=== PATIENT | male | born 1960 | race Caucasian/White ===

== ENCOUNTER 2021-01-20 17:17 | Inpatient (IN) | payer MEDICARE ==
[~2021-01-20] VITALS: Ht 175.3 cm; Wt 107.5 kg
--- NOTE | 2021-01-20 17:59 | PHYS DOC ---
Past Medical History Past Medical History: Arthritis Additional Past Medical Histor: Chronic Testicular pain Past Surgical History: No Surgical History General Adult EDM: Chief Complaint: BACK PAIN - NO INJURY HPI: HPI: Patient is a 60-year-old male that presents today via [facility] with low back pain with radiation to the right leg. Patient states that he went to the this morning which is his normal routine, he then went to [facility] to meet with someone and did some shopping he says while he was shopping he said he noticed a pain in his right side and by the time he got home the pain is worse and he was having shooting pains down his right leg. He states that his had pain in the past related to this he said that his old primary care physician uses give him Gerald and Flexeril for it, he states he has not had a flareup in 3 years he took some medications at home today that were over 2 years old and he said they did nothing for his pain. Patient states he has never had any MRI studies or any kind of radiological studies on his back in the past. Patient denies loss of bowel or bladder control, patient states he has not had the sensation to go to the bathroom or to have a stool today, he says he has had very little to eat and has had a few glasses of water Review of Systems: Review of Systems: Constitutional: Denies fever or chills. [] Eyes: Denies change in visual acuity. [] HENT: Denies nasal congestion or sore throat. [] Respiratory: Denies cough or shortness of breath. [] Cardiovascular: Denies chest pain or edema. [] GI: Denies abdominal pain, nausea, vomiting, bloody stools or diarrhea. [] : Denies dysuria. [] Musculoskeletal: Low back pain with radiation to the right leg Integument: Denies rash. [] Neurologic: Denies headache, focal weakness or sensory changes. [] Endocrine: Denies polyuria or polydipsia. [] Lymphatic: Denies swollen glands. [] Psychiatric: Denies depression or anxiety. [] Heart Score: C/O Chest Pain: N/A Risk Factors: Risk Factors: DM, Current or recent (<one month) smoker, HTN, HLP, family history of CAD, obesity. Risk Scores: Score 0 - 3: 2.5% MACE over next 6 weeks - Discharge Home Score 4 - 6: 20.3% MACE over next 6 weeks - Admit for Clinical Observation Score 7 - 10: 72.7% MACE over next 6 weeks - Early Invasive Strategies Current Medications: Current Medications Medications (Trade) Dose Ordered Sig/Kourntey Start Time Stop Time Status Last Admin Dose Admin Ketorolac Tromethamine (Toradol Im) 60 mg 1X ONCE 01/20/21 18:00 01/20/21 18:01 UNV Orphenadrine Citrate (Norflex) 60 mg 1X ONCE 01/20/21 18:00 01/20/21 18:01 UNV Allergies: Allergies: Allergies Coded Allergies Type Severity Reaction Last Updated Verified Sulfa (Sulfonamide Antibiotics) Allergy Unknown 01/20/21 Yes Physical Exam: PE: Constitutional: Well developed, well nourished, mild distress, non-toxic appearance. [] HENT: Normocephalic, atraumatic, bilateral external ears normal, oropharynx moist, no oral exudates, nose normal. [] Eyes: PERRLA, EOMI, conjunctiva normal, no discharge. [] Neck: Normal range of motion, no tenderness, supple, no stridor. [] Cardiovascular:Heart rate regular rhythm, no murmur [] Lungs & Thorax: Bilateral breath sounds clear to auscultation [] Abdomen: Bowel sounds normal, soft, no tenderness, no masses, no pulsatile masses. [] Skin: Warm, dry, no erythema, no rash. [] Back: Tenderness located in the low back area over L4-5 L5-S1 also had some radiation into the right buttock area [] Extremities: No tenderness, no cyanosis, no clubbing, ROM intact, no edema. [] Neurologic: Alert and oriented X 3, patient states he is unable to use his right leg very well while walking and he had does have some sensory deficits in the right leg Psychologic: Affect normal, judgement normal, mood normal. [] Current Patient Data: Vital Signs: Vital Signs Date Time Temp Pulse Resp B/P (MAP) Pulse Ox O2 Delivery O2 Flow Rate FiO2 01/20/21 17:27 98.6 101 15 138/67 (90) 96 Room Air 98.6 EKG: EKG: [] Radiology/Procedures: Radiology/Procedures: [REASON: low back pain PROCEDURE: LUMBAR SPINE MIN 4V EXAMINATION: XR LUMBAR SPINE 4+V CLINICAL HISTORY: Low back pain TECHNIQUE: XR LUMBAR SPINE 4+V COMPARISON: None FINDINGS/ IMPRESSION: Normal anatomic alignment. No evidence of acute fracture or spondylolisthesis. Disc spaces are relatively well-maintained. Multilevel facet arthropathy. SI joints maintained. Vascular calcifications. Electronically signed by: Orville Bloom DO (01/20/2021 7:14 PM) [facility]] Course & Med Decision Making: Course & Med Decision Making Pertinent Labs and Imaging studies reviewed. (See chart for details) 1909 reassessment of patient done patient states pain is down to a 2 or 3 out of 10, patient ambulated by nursing staff having to use a cane states he is unable to walk very far he walked about 10 feet down the hallway and states that he cannot do anymore. Patient states he lives by himself and has no resources at home. Will talk to [facility] physician and get the patient admitted Herminio Disclaimer: Herminio Disclaimer: This electronic medical record was generated, in whole or in part, using a voice recognition dictation system. Departure Departure Impression: Primary Impression: Intractable back pain Disposition: ADMITTED INPATIENT Admitting Physician: YANET Condition: STABLE LOLIS ARCOS [employer] Jan 20, 2021 17:59
[2021-01-20] MEDS ORDERED: KETOROLAC 60 MG/2 ML VIAL. IM ONE (18:00)
[2021-01-20] MEDS ORDERED: ORPHENADRINE CITRATE 60 MG/2 ML VIAL. IM ONE (18:00)
--- NOTE | 2021-01-20 19:17 | RAD ---
EXAMINATION: XR LUMBAR SPINE 4+V CLINICAL HISTORY: Low back pain TECHNIQUE: XR LUMBAR SPINE 4+V COMPARISON: None FINDINGS/ IMPRESSION: Normal anatomic alignment. No evidence of acute fracture or spondylolisthesis. Disc spaces are relati vely well-maintained. Multilevel facet arthropathy. SI joints maintained. Vascular calcifications. Electronically signed by: Orville Bloom DO (01/20/2021 7:14 PM) MARINA
[2021-01-20] MEDS ORDERED: HYDROcodone/APAP 5/325MG 1 TAB TABLET PO PRN (20:00)
[2021-01-20 21:30] VITALS: BP_SYST 150; BP_SYST 153; BP_DIAS 70; BP_DIAS 83
[2021-01-20] MEDS ORDERED: BUTORPHANOL 2 MG/ML VIAL. IV PRN (21:45)
[2021-01-20] MEDS ORDERED: ALLO300T PO (21:53)
--- NOTE | 2021-01-20 22:09 | HP ---
DATE OF SERVICE: 01/20/2021 ADMIT DATE: 01/20/2021 CHIEF COMPLAINT: Back pain and leg pain. HISTORY OF PRESENT ILLNESS: The patient is a pleasant 60-year-old male who presented from [place] via EMS. He has chronic radicular pain. He states he has had sciatica for 10 years, but it got worse. While in the ER, he was having problems walking. I gave him some IM Norflex and some Toradol that seemed to help a little bit, but he still cannot walk. I discussed the case with ER physician. We are going to admit the patient and consult Dr. Bansal. PAST MEDICAL HISTORY: Possible narcotic dependence? (he states he has some [place] at home), arthritis, chronic back pain, testicular pain, sciatica. ALLERGIES: SULFA. FAMILY HISTORY: Diabetes. SOCIAL HISTORY: Does not drink, smoke or take drugs. He states he is on disability. MEDICATIONS: Reviewed, please refer to the MRAD. REVIEW OF SYSTEMS: GENERAL: No history of weight change, weakness or fevers. SKIN: No bruising, hair changes or rashes. EYES: No blurred, double or loss of vision. NOSE AND THROAT: No history of nosebleeds, hoarseness or sore throat. HEART: No history of palpitations, chest pain or shortness of breath on exertion. LUNGS: Denies cough, hemoptysis, wheezing or shortness of breath. GASTROINTESTINAL: Denies changes in appetite, nausea, vomiting, diarrhea or constipation. GENITOURINARY: No history of frequency, urgency, hesitancy or nocturia. NEUROLOGIC: Denies history of numbness, tingling, tremor or weakness. PSYCHIATRIC: No history of panic, anxiety or depression. ENDOCRINE: No history of heat or cold intolerance, polyuria or polydipsia. EXTREMITIES: He complains of leg pain. PHYSICAL EXAMINATION: VITALS: Within normal limits and are stable. GENERAL: No apparent distress. Alert and oriented. HEENT: Normal cephalic atraumatic, external auditory canals are patent. EYES: Extraocular muscles are intact, pupils are equally round and reactive to light and accommodation. MUSCULOSKELETAL: Well developed, well nourished, good range of motion. ENDOCRINE: No thyromegaly was palpated. LYMPHATICS: No cervical chain or axillary nodes were noted. HEMATOPOIETIC: No bruising. NECK: Supple, no JVD, no thyromegaly was noted. LUNGS: Clear to auscultation in all lung gil without rhonchi or wheezing. HEART: RRR, S1, S2 present. Peripheral pulses intact, no obvious murmurs were noted. ABDOMEN: Soft, nontender. Positive bowel sounds no organomegaly, normal bowel sounds. EXTREMITIES: Without any cyanosis, clubbing, or edema. Pedal pulses intact, Homans sign is negative. NEUROLOGIC: Straight leg raising on the right does produce back pain. PSYCHIATRIC: Normal affect, normal mood. Stable. SKIN: No ulcerations or rashes, good skin turgor, no jaundice. VASCULAR: Good capillary refill, neurovascular bundle appears to be intact. ASSESSMENT AND PLAN: Intractable radicular pain. The patient has been admitted. We will consult Dr. Bansal. P.r.n. pain meds, home meds, DVT prophylaxis. Full code. ERWIN DR: Vero TID: [id number]
[2021-01-20] MEDS: NICOTINE 21MG PATCH. TD SCH (22:56)
[2021-01-20 23:13] VITALS: BP 136/53
[2021-01-20] MEDS ORDERED: traMADol 50 MG TABLET PO PRN (23:45)
[2021-01-21 03:02] VITALS: BP 124/67
[2021-01-21 07:00] VITALS: BP 142/70
[2021-01-21] MEDS: NICOTINE 21MG PATCH. TD SCH (08:57)
--- NOTE | 2021-01-21 10:28 | NUR ---
SW following. Discussed with RN, pt from home, room air, regular diet, ad syed. Dr. Bansal consulted. Pt wanting to go home today. Pt up ambulating in the hallway getting coffee. RN advised no SW needs at this time. SW will continue to follow.
[2021-01-21 11:00] VITALS: BP 144/68
--- NOTE | 2021-01-21 12:46 | PDOC ---
[employer] PROGRESS NOTE Date of Service DOS: DATE: 01/21/21 TIME: 12:46 Chief Complaint Chief Complaint ASSESSMENT AND PLAN: Intractable radicular pain. The patient has been admitted. We will consult Dr. Bansal. Pfidencio. pain meds, home meds, DVT prophylaxis. Full code. History of Present Illness History of Present Illness Mr Quan is a 60-year-old male w/ PMhx osteoarthritis, gout who presented from [place] via EMS. He has chronic radicular pain. He states he has had sciatica for 10 years, but it got worse. While in the ER, he was having problems walking with right leg sciatic pain that came on while in the pool at [facility]. Givensome IM Norflex and some Toradol that seemed to help a little bit, but he still could not walk. Admitted for further care. After hydrocodone and Medrol dosing as well as cyclobenzaprine patient feels significantly better able to ambulate. No chest pain or shortness of breath no swelling of right leg. Counseled on sciatic outpatient aquatic therapy and will go home with steroids cyclobenzaprine. Tramadol and outpatient as needed neurosurgery follow Vitals/I&O Vitals/I&O: Vital Signs Date Time Temp Pulse Resp B/P (MAP) Pulse Ox O2 Delivery O2 Flow Rate FiO2 01/21/21 11:00 98.0 82 16 144/68 (93) 95 Room Air 98.0 I & O 01/20/21 01/20/21 01/21/21 15:00 23:00 07:00 Intake Total 240 ml Balance 240 ml Physical Exam General: Alert, Oriented X3, Cooperative, mild distress Heart: Regular rate, Normal S1, Normal S2 Lungs: Clear Abdomen: Normal bowel sounds, Soft Extremities: No clubbing, No cyanosis Skin: No rashes, No breakdown Assessment and Plan Assessmemt and Plan Problems Medical Problems: (1) Intractable back pain Status: Acute Comment Review of Relevant I have reviewed the following items rasheed (where applicable) has been applied. Medications: Current Medications Medications (Trade) Dose Ordered Sig/Kourtney Route PRN Reason Start Time Stop Time Status Last Admin Dose Admin Ketorolac Tromethamine (Toradol Im) 60 mg 1X ONCE IM 01/20/21 18:00 01/20/21 18:01 DC 01/20/21 18:07 Orphenadrine Citrate (Norflex) 60 mg 1X ONCE IM 01/20/21 18:00 01/20/21 18:01 DC 01/20/21 18:08 Acetaminophen/ Hydrocodone Bitart (Lortab 5/325) 2 tab PRN Q6HRS PRN PO pain 01/20/21 20:00 01/20/21 22:56 Nicotine (Nicoderm Cq 21mg) 1 patch DAILY TD 01/20/21 23:00 01/20/21 22:56 Tramadol HCl (Ultram) 50 mg PRN Q6HRS PRN PO MODERATE PAIN 4-6 01/20/21 23:45 01/21/21 04:13 Justifications for Admission Other Justification JUD HARRELL MD Jan 21, 2021 12:46
[2021-01-21] MEDS ORDERED: PRED20TA PO (13:03)
[2021-01-21] MEDS ORDERED: TRAM50TA PO (13:03)
[2021-01-21] MEDS ORDERED: CYCL10TA19 PO (13:04)
--- NOTE | 2021-01-21 13:09 | PDOC3 ---
Discharge Summary Visit Information Date of Admission: Jan 20, 2021 Date of Discharge: Jan 21, 2021 Admitting Diagnosis: Right sciatica, intractable back pain Final Diagnosis Problems Medical Problems: (1) Intractable back pain Status: Acute Brief Hospital Course Allergies Allergies Coded Allergies Type Severity Reaction Last Updated Verified Sulfa (Sulfonamide Antibiotics) Allergy Intermediate 01/20/21 Yes Vital Signs Vital Signs Date Time Temp Pulse Resp B/P (MAP) Pulse Ox O2 Delivery O2 Flow Rate FiO2 01/21/21 11:00 98.0 82 16 144/68 (93) 95 Room Air 98.0 Brief Hospital Course Mr Quan is a 60-year-old male w/ PMhx osteoarthritis, gout who presented from [place] via EMS. He has chronic radicular pain. He states he has had sciatica for 10 years, but it got worse. While in the ER, he was having problems walking with right leg sciatic pain that came on while in the pool at [facility]. Givensome IM Norflex and some Toradol that seemed to help a little bit, but he still could not walk. Admitted for further care. After hydrocodone and Medrol dosing as well as cyclobenzaprine patient feels significantly better able to ambulate. No chest pain or shortness of breath no swelling of right leg. Counseled on sciatic outpatient aquatic therapy and will go home with steroids cyclobenzaprine. Tramadol and outpatient as needed neurosurgery follow Problem list: Intractable back pain Right sciatica Obesity -counseled on lifestyle Smokergiven nicotine patch counseled for 12 minutes on smoking cessation Greater than 30 minutes spent on d/c home with self care Discharge Information Condition at Discharge: Improved Follow Up: Weeks (1) Disposition/Orders: D/C to Home Scheduled Allopurinol (Allopurinol) 300 Mg Tablet, 1 TAB PO DAILY for gout, #30 Ref 5 (Reported) Entered as Reported by: Dax Burr on 01/20/212152 Last Action: New Order on 01/20/212152 by Dax Burr Cyclobenzaprine Hcl (Cyclobenzaprine Hcl) 10 Mg Tablet, 1 TAB PO TID for Sciatica, #90 Prescribed by: JUD HARRELL MD on 01/21/21 1304 Prednisone (Prednisone) 20 Mg Tablet, 1 TAB PO DAILY for Sciatica for 5 Days, #5 Prescribed by: JUD HARRELL MD on 01/21/21 1303 Scheduled PRN Tramadol Hcl (Tramadol Hcl) 50 Mg Tablet, 50 MG PO PRN Q6HRS PRN for MODERATE PAIN 4-6 for 3 Days, #10 Prescribed by: JUD HARRELL MD on 01/21/21 1304 Justicifation of Admission Dx: Justifications for Admission: Justification of Admission Dx: Yes JUD HARRELL MD Jan 21, 2021 13:09
[2021-01-21] MEDS ORDERED: methylPREDNISolone 4 MG TABLET. PO ONE (13:30)
--- NOTE | 2021-01-21 13:30 | NUR ---
Patient left with our transportation at 1330. Discharge instructions addressed with the patient prior to dismissal. No IV access present. Patient is aware he needs to call Dr Nimisha HAMILTON for a follow up appointment outpatient. Patient was given the option to stay here at [facility] to have a MRI completed or to go see Dr Bansal on an outpatient basis. Patient stated he feels so much better, he is walking around his room without assistance, and has denied pain meds all day. He wanted to go home now and will see Dr Bansal in his office. Medication sent to his pharmacy per Dr Bernard. Patient has a follow up with his PCP on 01/31 per patient report. No concerns noted at discharge.
== END 2021-01-21 13:38 | disposition home or self-care (01) | DRG 552 ==
LOC: ER 17:17 → 4 NORTH 19:30
PROVIDERS: ADMIT Internal Medicine; ATTEND Internal Medicine
DX: M54.41 Lumbago with sciatica, right side (principal); E66.9 Obesity, unspecified; F17.200 Nicotine dependence, unspecified, uncomplicated; Z83.3 Family history of diabetes mellitus; G89.29 Other chronic pain; M10.9 Gout, unspecified; M19.90 Unspecified osteoarthritis, unspecified site; Z88.2 Allergy status to sulfonamides; Z88.8 Allergy status to other drugs, medicaments and biological substances; M43.06 Spondylolysis, lumbar region; Z68.35 Body mass index [BMI] 35.0-35.9, adult
CPT/HCPCS: 72110; 96372; J1885; J2360; 99285-25; G0378

== ENCOUNTER → 2021-02-25 | Outpatient (CLI) | payer MEDICARE ==
[~2021-02-25] MED LIST: ALLO300T PO; CYCL10TA19 PO; GADOTERATE 5 MMOL/10ML VIAL. IVP ONE; PRED20TA PO; TRAM50TA PO
--- NOTE | 2021-02-25 14:16 | KCIC ---
EXAMINATION: Magnetic resonance imaging (MRI) of the lumbar spine with and without contrast 10:45 AM HISTORY: Lumbar radiculopathy TECHNIQUE: Multiplanar multi-weighted MRI of the lumbar spine was performed with and without intraven ous contrast using the standard lumbar spine protocol. Contrast information: 20 cc gadolinium based contrast. COMPARISON: None available. FINDINGS: There is 2 mm retrolisthesis of L1 on L2 and L2 on L3. There is disc desiccation at all levels of the lumbar spine. Mild disc height loss at L5-S1. Modic type II endplate degenerative changes are identi fied at L1-L2. Osseous hemangioma identified at L3. Vertebral bodies demonstrate normal signal intens ity on all sequences. There are no compression fractures. The conus medullaris terminates at the le yancy of L1. The distal spinal cord signal intensity is normal. Limited views of the abdomen and pelv is show no soft tissue abnormality. The aorta is normal. L1-L2: Mild disc bulge. No significant facet arthropathy. Mild neuroforaminal stenosis. No spinal can al stenosis. L2-L3: There is mild disc bulge. No significant facet arthropathy. Mild neuroforaminal stenosis. Mild spinal canal stenosis, exacerbated by epidural lipomatosis. L3-L4: There is no significant disc herniation. Facets are normal in appearance. Mild bilateral neuro foraminal stenosis. Mild spinal canal stenosis, exacerbated by epidural lipomatosis. L4-L5: There is a circumferential disc bulge with central annular fissure. Mild right and mild/modera te left facet arthropathy. Mild bilateral neuroforaminal stenosis. No spinal canal stenosis. L5-S1: There is disc bulge asymmetric to the left. Mild to moderate left facet arthropathy. Moderate left neuroforaminal stenosis. There is narrowing the thecal sac secondary to epidural lipomatosis. IMPRESSION: Mild degenerative changes of the lumbar spine as described in detail above. Electronically signed by: Caren Wright MD (02/25/2021 2:14 PM) [id number]
== END ==
LOC: KCIC MRI 11:10
PROVIDERS: ATTEND Neurological Surgery
DX: M47.26 Other spondylosis with radiculopathy, lumbar region (principal); M51.27 Other intervertebral disc displacement, lumbosacral region; M48.8X7 Other specified spondylopathies, lumbosacral region; M48.07 Spinal stenosis, lumbosacral region; M43.16 Spondylolisthesis, lumbar region; D18.09 Hemangioma of other sites; M51.37 Other intervertebral disc degeneration, lumbosacral region
CPT/HCPCS: 72158; A9575